=== PATIENT | female | born 1970 | race African-American/Black ===

== ENCOUNTER 2018-02-07 10:13 | Emergency (ER) | payer SELFPAY ==
[2018-02-07] MEDS ORDERED: Fentanyl 100 MCG/2 ML VIAL ONE (10:48)
[2018-02-07] MEDS ORDERED: Ondansetron PF 4 MG/2 ML Vial ONE (10:49)
[2018-02-07 11:01] LABS: #Basophils 0.1 thou/uL (0.0-0.2); #Eosinphils 0.1 thou/uL (0.0-0.7); #Lymphocytes 1.9 thou/uL (1.20-3.40); #Monocytes 0.8 thou/uL (0.11-0.59); #Neutrophils 8.2 thou/uL (1.40-6.50); %Basophils 0.6 % (0.0-1.0); %Eosinophils 0.8 % (0.0-10.0); %Lymphocytes 16.9 % (21.0-51.0); %Neutrophils 74.7 % (42.0-75.0); Hemoglobin 14.3 g/dL (12.0-16.0); Mean Corpuscular HGB CONC 32.9 g/dL (32.0-36.0); Mean Corpuscular Hemoglobin 29.2 pg (27.0-31.0); Mean Platelet Volume 8.8 fL (7.4-10.4); Platelet Count 267 thou/uL (130-400); RBC Distribution Width 11.9 % (11.5-14.5); Red Blood Cell (RBC) Count 4.91 mill/uL (4.20-5.40); White Blood Cell (WBC) Count 10.9 thou/uL (4.8-10.8)
[2018-02-07 11:02] LABS: ALT (SGPT) 15 U/L (8-55); AST (SGOT) 21 U/L (5-34); Alkaline Phosphatase 123 U/L (40-150); Anion Gap 14 mmol/L (10-20); BUN (Urea Nitrogen) 8 mg/dL (7.0-18.7); Bilirubin, Total 0.5 mg/dL (0.2-1.2); Calc. Creatinine Clearance 0 mL/min (70-130); Carbon Dioxide 22 mmol/L (22-29); Chloride 108 mmol/L (98-107); Estimated GFR-MDRD Greater than 90; Globulin 3.2 g/dL (2.4-3.5); Glucose 98 mg/dL (70-105); Lipase 18 U/L (8-78); Potassium 4.6 mmol/L (3.5-5.1); Protein, Total 7.2 g/dL (6.0-8.3); Sodium 139 mmol/L (136-145)
[2018-02-07 11:05] LABS: BHCG - Serum Negative (NEGATIVE); Pregs Control Background? CLEAR/WHITE (CLR/WHITE); Pregs Control Bar Appear? YES (CONTROL BAR)
[2018-02-07 11:41] LABS: Bacteria/HPF 1+ HPF (None Seen); Pathc Cast-AUWi Flag 2.32 (0-2.49); WBC/HPF 0-3 HPF (0-3)
[2018-02-07 11:50] LABS: Bilirubin Small (Negative); Blood, Urine Negative (Negative); Clarity CLEAR (Clear); Glucose, Urine (Dipstick) Negative (Negative); Leukocyte Negative (Negative); Nitrite Negative (Negative); Protein, Urine (Dipstick) 30 mg/dL (Neg-Trace); Specific Gravity, Urine 1.031 (1.002-1.036); Urobilinogen 0.2 mg/dL (0.2-1.0)
[2018-02-07 12:03] LABS: Hyaline Casts/LPF 0-3 HYALINE CAST LPF (0-3 Hyaline); RBC/HPF 0-3 HPF (0-3)
[2018-02-07 12:04] LABS: Renal Epithelial None Seen HPF (0-3); Transitional Epithelial NONE SEEN HPF (0-3)
--- NOTE | 2018-02-07 13:45 | CT ---
CT ABDOMEN AND PELVIS WITH IV CONTRAST: Multiple axial tomograms are obtained through the abdomen and pelvis with IV enhancement. Oral contr ast was administered. INDICATION: Abdominal pain with diarrhea. FINDINGS: Lung bases clear. The liver, spleen, and pancreas appear unremarkable. The patient is post cholecystectomy. Stomach a nd duodenum unremarkable. Adrenal glands normal. Kidneys unremarkable. Urinary bladder is contracted and not evaluated. Small bowel loops show nonspecific distention of the proximal and mid small bowel. There is evidence of mural thickening and luminal narrowing of the distal and terminal ileum. There is mural thickeni ng of the right colon and mild pericolonic stranding suggesting inflammatory change. The transverse colon and right colon are poorly distended and not well evaluate; however, diffuse mural thickening c annot be excluded. Aorta normal caliber. No evidence of adenopathy. Images through the pelvis show evidence of hystere ctomy. IMPRESSION: Luminal narrowing and mural thickening of the terminal ileum and evidence of mural thickening and gill rounding inflammation in the right colon. Cannot exclude mild mural thickening of the entire colon a s discussed above. Consider colonoscopy to further evaluate. POS: [facility]
[2018-02-07] MEDS ORDERED: ISOVUE-370 76%-LOCM 1 ML ONE (13:59)
[2018-02-07] MEDS ORDERED: Iopamidol 370 76% 50 ML VIAL FS ONE (13:59)
== END 2018-02-07 14:02 | disposition home or self-care (01) ==
LOC: ERS 10:13
DX: A04.5 Campylobacter enteritis (principal); F32.9 Major depressive disorder, single episode, unspecified; Z79.899 Other long term (current) drug therapy
CPT/HCPCS: 36415; 74177; 80053; 81003; 81015; 82274; 83690; 84703; 85025; 87045; 87046; 87324; 87449; 87899; 96361; 96374; 96375; J2405; J3010